=== PATIENT | female | born 1995 | race African-American/Black ===

== ENCOUNTER 2017-08-26 19:04 | Emergency (ER) | payer MEDICAID ==
[~2017-08-26] VITALS: Ht 170.2 cm; Wt 80.0 kg
[2017-08-26 19:11] VITALS: BP 123/64
[2017-08-26 20:00] LABS: CLARITY URINE CLEAR (CLEAR); COLOR URINE YELLOW (YELLOW); KETONES URINE NEGATIVE (NEGATIVE); LEUKOCYTE ESTERASE URINE NEGATIVE (NEGATIVE); NITRITE URINE NEGATIVE (NEGATIVE); OCCULT BLOOD URINE NEGATIVE (NEGATIVE); PROTEIN URINE NEGATIVE (NEGATIVE); SPECIFIC GRAVITY URINE 1.013 (1.005-1.030); UROBILINOGEN URINE 0.2 E.U./dL (0.2-1.0)
== END 2017-08-27 00:15 | disposition left against medical advice (07) ==
LOC: ER 19:04
DX: R10.84 Generalized abdominal pain (principal); Z88.0 Allergy status to penicillin
CPT/HCPCS: 81003; 81025; 99283